=== PATIENT | female | born 1935 | race Hispanic/Latino ===

== ENCOUNTER 2025-05-29 07:47 | Day surgery (SDC) | payer OTHER ==
[~2025-05-29] VITALS: Ht 147.3 cm; Wt 41.3 kg
[2025-05-29] VITALS (10 sets, daily range): BP systolic 78–159; BP diastolic 36–69; PULSE 71–82; RESP 14–18; TEMP 97.1–98
[2025-05-29] MEDS: 0.9%NACL 1000ML 1,000 ML IV ONE (08:30)
[2025-05-29] MEDS ORDERED: MELA5TAB21 PO (08:40)
[2025-05-29] MEDS ORDERED: ASPI-1005 PEG (08:40)
[2025-05-29] MEDS ORDERED: MIRT-22 PEG (08:40)
[2025-05-29] MEDS ORDERED: PREN-134 PEG (08:40)
[2025-05-29] MEDS ORDERED: FAMO20TA8 PEG (08:40)
[2025-05-29] MEDS ORDERED: TYLENOL PEG (08:40)
[2025-05-29] MEDS ORDERED: CLOP-31 PEG (08:40)
[2025-05-29] MEDS ORDERED: LATA2.5D7 OS (08:40)
[2025-05-29] MEDS ORDERED: AMLO-257 PEG (08:40)
[2025-05-29] MEDS ORDERED: LOSA100T59 PEG (08:40)
[2025-05-29] MEDS ORDERED: ATOR40TA69 PEG (08:40)
--- NOTE | 2025-05-29 11:10 | NUR ---
DAUGHTER AND PT GIVEN VERBAL AND WRITTEN DISCHARGE INSTRUCTIONS. IV REMOVED SITE ASYMPTOMATIC. DAUGHTER DID VERBALIZE UNDERSTANDING ABOUT TUBE FEEDING. STATES SHE HAS WORKED WITH PT AND PREVIOUS TUBE FEEDINGS WITH HER. PT TAKEN OUT VIA WHEELCHAIR DAUGHTER DRIVING.
== END 2025-05-29 11:25 | disposition home or self-care (01) ==
LOC: ENDO 07:47 → DAH 07:47 → ENDO 11:25
PROVIDERS: ATTEND Internal Medicine Gastroenterology
DX: K94.23 Gastrostomy malfunction (principal); I10 Essential (primary) hypertension; K31.A19 Gastric intestinal metaplasia without dysplasia, unspecified site; R94.5 Abnormal results of liver function studies; R10.30 Lower abdominal pain, unspecified; R93.1 Abnormal findings on diagnostic imaging of heart and coronary circulation; K44.9 Diaphragmatic hernia without obstruction or gangrene; K31.819 Angiodysplasia of stomach and duodenum without bleeding; K59.00 Constipation, unspecified; D64.9 Anemia, unspecified; Z86.73 Personal history of transient ischemic attack (TIA), and cerebral infarction without residual deficits; Z79.899 Other long term (current) drug therapy
CPT/HCPCS: 43246; J7030; J3490; J2704; A4620; A4215; A4223; A7002; A4222; A4221; A4663; A4606